=== PATIENT | male | born 1980 | race American Indian/Alaskan Native ===

== ENCOUNTER 2018-04-01 18:34 | Emergency (ER) | payer OTHER ==
[2018-04-01 19:21] VITALS: TEMP 98.2; BMI 30.1
[2018-04-01] MEDS ORDERED: Tobramycin 0.3% OPHT SOLN OD STA (19:30)
--- NOTE | 2018-04-01 19:34 | ED PDOC ---
Arrival/HPI - General Chief Complaint: Eye Problem Time Seen by Provider: 04/01/18 18:47 Historian: Patient - History of Present Illness Narrative History of Present Illness (Text): 04/01/18 19:31 37yo male with no PMhx who present with 2weeks history of left eye pain, redness , crusty purulent discharge. 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 He denies visual acuity changes, any other complaint. Past Medical History - Provider Review Nursing Documentation Reviewed: Yes - Infectious Disease Hx of Infectious Diseases: None - Cardiac Hx Cardiac Disorders: No - Pulmonary Hx Respiratory Disorders: Yes Hx Asthma: Yes - Neurological Hx Neurological Disorder: No - HEENT Hx HEENT Disorder: No - Renal Hx Renal Disorder: No - Endocrine/Metabolic Hx Endocrine Disorders: No - Hematological/Oncological Hx Blood Disorders: No - Integumentary Hx Dermatological Disorder: No - Musculoskeletal/Rheumatological Hx Musculoskeletal Disorders: No - Gastrointestinal Hx Gastrointestinal Disorders: No - Genitourinary/Gynecological Hx Genitourinary Disorders: No - Psychiatric Hx Psychophysiologic Disorder: Yes Hx Anxiety: Yes Hx Substance Use: Yes - Past Surgical History Past Surgical History: No Previous - Anesthesia Hx Anesthesia: Yes Hx Anesthesia Reactions: No Hx Malignant Hyperthermia: No - Suicidal Assessment Feels Threatened In Home Enviroment: No Family/Social History - Physician Review Nursing Documentation Reviewed: Yes Family/Social History: Unknown Family HX Smoking Status: Never Smoked Hx Alcohol Use: No Hx Substance Use: Yes Substance used: marijuana Allergies/Home Meds Allergies/Adverse Reactions: Allergies PCN Allergy (Uncoded 09/12/16 18:15) ANAPHYLAXIS Home Medications: Home Meds Medication Instructions Recorded Confirmed No Known Home Med 04/01/18 04/01/18 Review of Systems - Physician Review All systems were reviewed & negative as marked: Yes - Review of Systems Constitutional: Normal Eyes: Eye Pain (LEft eye), Other (Purulent discharge/redness) ENT: Normal Respiratory: Normal Cardiovascular: Normal Gastrointestinal: Normal Genitourinary Male: Normal Musculoskeletal: Normal Skin: Normal Neurological: Normal Endocrine: Normal Hemo/Lymphatic: Normal Psychiatric: Normal Physical Exam Vital Signs Reviewed: Yes Vital Signs Temp Pulse Resp Pulse Ox 04/01/18 19:17 98.2 F 99 H 17 98 Temperature: Afebrile Blood Pressure: Normal Pulse: Regular Respiratory Rate: Normal Appearance: Positive for: Well-Appearing, Non-Toxic, Comfortable Pain Distress: None Mental Status: Positive for: Alert and Oriented X 3 - Systems Exam Head: Present: Atraumatic, Normocephalic Pupils: Present: PERRL Extroacular Muscles: Present: EOMI Conjunctiva: Present: Injected (LEft eye), Icteric ([place] left conjunctiva) Mouth: Present: Moist Mucous Membranes Neck: Present: Normal Range of Motion Respiratory/Chest: Present: Clear to Auscultation, Good Air Exchange. No: Respiratory Distress, Accessory Muscle Use Cardiovascular: Present: Regular Rate and Rhythm, Normal S1, S2. No: Murmurs Abdomen: No: Tenderness, Distention, Peritoneal Signs Back: Present: Normal Inspection Upper Extremity: Present: Normal Inspection. No: Cyanosis, Edema Lower Extremity: Present: Normal Inspection. No: Edema Neurological: Present: GCS=15, CN II-XII Intact, Speech Normal Skin: Present: Warm, Dry, Normal Color. No: Rashes Psychiatric: Present: Alert, Oriented x 3, Normal Insight, Normal Concentration Medical Decision Making - Medication Orders Current Medication Orders: Discontinued Medications Tobramycin Sulfate (Tobrex 0.3% Ophth Soln) 2 drop OD STAT STA Stop: 04/01/18 19:31 Disposition/Present on Arrival - Present on Arrival Any Indicators Present on Arrival: No History of DVT/PE: No History of Uncontrolled Diabetes: No Urinary Catheter: No History of Decub. 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
[2018-04-01 21:27] VITALS: BP 134/98; PULSE 80; RESP 18; O2SAT 100
== END 2018-04-01 20:33 | disposition home or self-care (01) ==
LOC: ED 18:34
DX: H10.9 Unspecified conjunctivitis (principal)

== ENCOUNTER 2018-08-18 20:11 | Emergency (ER) | payer SELFPAY ==
[2018-08-18 20:11] VITALS: BMI 30.1
[2018-08-18 22:23] LABS: URINE BILIRUBIN NEGATIVE (NEGATIVE); URINE BLOOD NEGATIVE (NEGATIVE); URINE GLUCOSE (UA) NEGATIVE (NEGATIVE); URINE LEUKOCYTE ESTERASE NEGATIVE Leu/uL (NEGATIVE); URINE PROTEIN NEGATIVE mg/dL (<30 mg/dL); URINE UROBILINOGEN 0.2 E.U./dL (<1 E.U./dL)
[2018-08-18 22:24] LABS: BASO # 0.02 K/mm3 (0.0-2.0); BASO % 0.2 % (0.0-3.0); EOS # 0.2 (0.0-0.7); EOS % 2.6 % (1.5-5.0); GRAN # 6.5 (1.4-6.5); GRAN % 71.9 % (50.0-68.0); HEMOGLOBIN 11.5 g/dL (14.0-18.0); LYMPH # 1.8 (1.2-3.4); LYMPH % 19.5 % (22.0-35.0); MEAN CELL VOLUME 86.6 fl (80.0-105.0); MEAN CORPUSCULAR HEMOGLOBIN 27.4 pg (25.0-35.0); MEAN CORPUSCULAR HGB CONC 31.7 g/dl (31.0-37.0); MEAN PLATELET VOLUME 11.3 fl (7.0-11.0); MONO # 0.5 (0.1-0.6); MONO % 5.8 % (1.0-6.0); RBC 4.19 10^6/uL (3.5-6.1); RED CELL DISTRIBUTION WIDTH 13.3 % (11.5-14.5); WHITE BLOOD COUNT 9.1 10^3/ul (4.5-11.0)
[2018-08-18 22:26] LABS: URINE APPEARANCE CLEAR (CLEAR); URINE COLOR YELLOW (YELLOW)
[2018-08-18 22:32] LABS: ALBUMIN 4.1 g/dL (3.0-4.8); ALT/SGPT 34 U/L (7-56); AST/SGOT 34 U/L (17-59); BLOOD UREA NITROGEN 14 mg/dL (7-21); CALCIUM 9.1 mg/dL (8.4-10.5); GFR NON-AFRICAN AMERICAN > 60; URIC ACID 4.9 mg/dL (3.5-8.5)
[2018-08-18 23:33] VITALS: PULSE 90; TEMP 98.4
--- NOTE | 2018-08-19 00:33 | ED PDOC ---
Arrival/HPI <Lee Atkinsont - Last Filed: 08/19/18 03:32> - General Historian: Patient - History of Present Illness Narrative History of Present Illness (Text): 08/19/18 00:28 38 y/o male with PMH of gout who presents to the ED c/o right knee pain and right 1st MTP joint pain x 3 weeks. Pt states right knee began to swell on Saturday. Pt ambulating with a cane due to right knee pain. Has been taking 800mg ibuprofen daily without relief (last dose 600mg this AM). Pt is not on any chronic medication for gout, his typical flares are in his 1st MTP joint. Admits to a "rich diet" over the last few weeks to include seafood and wine. Pt sexually active with monogamous partner. Denies trauma, right knee erythema, fever, chills, headache, N/V, abdominal pain, SOB, chest pain, palpitations, rash, urinary symptoms, penile discharge. <Alanna Purvis - Last Filed: 08/19/18 04:24> - General Chief Complaint: Lower Extremity Problem/Injury Time Seen by Provider: 08/18/18 21:32 Past Medical History - Provider Review Nursing Documentation Reviewed: Yes - Infectious Disease Hx of Infectious Diseases: None - Cardiac Hx Cardiac Disorders: No - Pulmonary Hx Respiratory Disorders: Yes Hx Asthma: Yes - Neurological Hx Neurological Disorder: No - HEENT Hx HEENT Disorder: No - Renal Hx Renal Disorder: No - Endocrine/Metabolic Hx Endocrine Disorders: No - Hematological/Oncological Hx Blood Disorders: No - Integumentary Hx Dermatological Disorder: No - Musculoskeletal/Rheumatological Hx Musculoskeletal Disorders: No - Gastrointestinal Hx Gastrointestinal Disorders: No - Genitourinary/Gynecological Hx Genitourinary Disorders: No - Psychiatric Hx Psychophysiologic Disorder: Yes Hx Anxiety: Yes Hx Substance Use: Yes - Past Surgical History Past Surgical History: No Previous - Anesthesia Hx Anesthesia: Yes Hx Anesthesia Reactions: No Hx Malignant Hyperthermia: No - Suicidal Assessment Feels Threatened In Home Enviroment: No <Alanna Purvis - Last Filed: 08/19/18 04:24> Family/Social History - Physician Review Nursing Documentation Reviewed: Yes Family/Social History: No Known Family HX Smoking Status: Never Smoked Hx Alcohol Use: No Hx Substance Use: Yes Substance used: marijuana <Alanna Purvis - Last Filed: 08/19/18 04:24> Allergies/Home Meds <Bakari Atkins - Last Filed: 08/19/18 03:32> <Alanna Purvis - Last Filed: 08/19/18 04:24> Allergies/Adverse Reactions: Allergies No Known Allergies Allergy (Verified 08/18/18 20:41) Home Medications: Home Meds Medication Instructions Recorded Confirmed Budesonide/Formoterol Fumarate 2 pump INH BID 08/18/18 08/18/18 [Symbicort 160-4.5 Mcg Inhaler] Review of Systems - Physician Review All systems were reviewed & negative as marked: Yes - Review of Systems Constitutional: Normal. absent: Fevers Eyes: Normal. absent: Vision Changes ENT: Normal Respiratory: Normal. absent: SOB, Cough Cardiovascular: Normal. absent: Chest Pain, Palpitations Gastrointestinal: Normal. absent: Abdominal Pain, Stool Changes, Nausea, Vomiting Genitourinary Male: Normal. absent: Dysuria, Frequency, Hematuria Musculoskeletal: Arthralgias (right knee, right 1st MTP joint), Joint Swelling (right knee). absent: Back Pain, Neck Pain Skin: Normal. absent: Rash Neurological: Normal. absent: Headache, Dizziness Endocrine: Normal. absent: Diaphoresis Hemo/Lymphatic: Normal. absent: Adenopathy <Alanna Purvis - Last Filed: 08/19/18 04:24> Physical Exam Vital Signs Temp Pulse Resp BP Pulse Ox 08/18/18 23:32 98.4 F 90 18 129/83 97 08/18/18 20:42 98.8 F 104 H 19 119/80 96 <Bakari Atkins - Last Filed: 08/19/18 03:32> Vital Signs Reviewed: Yes Vital Signs Temp Pulse Resp BP Pulse Ox 08/18/18 23:32 98.4 F 90 18 129/83 97 08/18/18 20:42 98.8 F 104 H 19 119/80 96 Temperature: Afebrile Blood Pressure: Normal Pulse: Regular Respiratory Rate: Normal Appearance: Positive for: Well-Appearing, Non-Toxic, Comfortable Pain Distress: None Mental Status: Positive for: Alert and Oriented X 3 - Systems Exam Head: Present: Atraumatic, Normocephalic Pupils: Present: PERRL Extroacular Muscles: Present: EOMI Conjunctiva: Present: Normal Mouth: Present: Moist Mucous Membranes Neck: Present: Normal Range of Motion. No: Meningeal Signs, MIDLINE TENDERNESS, Paraspinal Tenderness Respiratory/Chest: Present: Clear to Auscultation, Good Air Exchange. No: Respiratory Distress, Accessory Muscle Use Cardiovascular: Present: Regular Rate and Rhythm, Normal S1, S2. No: Murmurs Abdomen: No: Tenderness, Distention, Peritoneal Signs Back: Present: Normal Inspection. No: Midline Tenderness, Paraspinal Tenderness Upper Extremity: Present: Normal Inspection. No: Cyanosis, Edema Lower Extremity: Present: NORMAL PULSES, Tenderness (right knee, right 1st MTP joint), Swelling (right knee), Neurovascularly Intact, Capillary Refill < 2 s. No: CALF TENDERNESS, Cyanosis, Normal ROM (decreased in right knee secondary to pain), Erythema, Deformity Neurological: Present: GCS=15, CN II-XII Intact, Speech Normal, Motor Func Grossly Intact, Normal Sensory Function, Normal Cerebellar Funct. No: Gait Normal (ambulating with cane secondary to pain) <Alanna Purvis - Last Filed: 08/19/18 04:24> Medical Decision Making - Lab Interpretations Lab Results: 08/18/18 22:19 08/18/18 22:19 Lab Results 08/18/18 22:19: Urine Color Yellow, Urine Appearance Clear, Urine pH 6.0, Ur Specific [place] 1.025, Urine Protein Negative, Urine Glucose (UA) Negative, Urine Ketones Trace H, Urine Blood Negative, Urine Nitrate Negative, Urine Bilirubin Negative, Urine Urobilinogen 0.2, Ur Leukocyte Esterase Negative 08/18/18 22:19: Sodium 141, Potassium 4.4, Chloride 106, Carbon Dioxide 27, Anion Gap 13, BUN 14, Creatinine 1.0, Est GFR ( Amer) > 60, Est GFR (Non- Af Amer) > 60, Random Glucose 96, Uric Acid 4.9, Calcium 9.1, Total Bilirubin 0.6, AST 34, ALT 34, Alkaline Phosphatase 64, Total Protein 7.9, Albumin 4.1, Globulin 3.9, Albumin/Globulin Ratio 1.0 L 08/18/18 22:19: WBC 9.1 D, RBC 4.19, Hgb 11.5 L, Hct 36.3 L, MCV 86.6, MCH 27.4, MCHC 31.7, RDW 13.3, Plt Count 361, MPV 11.3 H, Gran % 71.9 H, Lymph % (Auto) 19.5 L, [place] % (Auto) 5.8, Eos % (Auto) 2.6, Baso % (Auto) 0.2, Gran # 6.50, Lymph # (Auto) 1.8, [place] # (Auto) 0.5, Eos # (Auto) 0.2, Baso # (Auto) 0.02, ESR 85 H - RAD Interpretation Radiology Orders: 08/19/18 01:21 KNEE RIGHT 2 VIEWS (AP & LAT) [RAD] Stat - Medication Orders Current Medication Orders: Discontinued Medications Dexamethasone (Decadron Inj) 10 mg IVP STAT STA Stop: 08/18/18 21:37 Last Admin: 08/18/18 22:02 Dose: 10 mg IVP Administration Document 08/18/18 22:02 [place] (Rec: 08/18/18 22:02 [id number]) Charges for Administration # of IVP Administrations 1 Ketorolac Tromethamine (Toradol) 30 mg IVP STAT STA Stop: 08/18/18 21:38 Last Admin: 08/18/18 22:03 Dose: 30 mg MAR Pain Assessment Document 08/18/18 22:03 [place] (Rec: 08/18/18 22:03 [id number]) Pain Reassessment Is this a pain reassessment? No Sleep Is patient sleeping during reassessment? No Presence of Pain Presence of Pain Yes IVP Administration Document 08/18/18 22:03 [place] (Rec: 08/18/18 22:03 [id number]) Charges for Administration # of IVP Administrations 1 <Bakari Atkins - Last Filed: 08/19/18 03:32> ED Course and Treatment: 08/19/18 00:36 Initial Plan: --CBC, CMP --Uric acid, ESR --Toradol --Decadron --Right knee xray CBC, CMP: wnl ESR: 85, elevated Uric acid: wnl On re-eval pt reports decreased pain After discussion with Dr. Atkins, he will attempt to perform arthrocentesis of right knee to assess for septic joint Unable to aspirate fluid, see procedure note Impression: Gout Flare Plan: --Prednisone --Indomethacin --Followup with clinic --Return to ED if symptoms worsen - Lab Interpretations Lab Results: 08/18/18 22:19 08/18/18 22:19 Lab Results 08/18/18 22:19: Urine Color Yellow, Urine Appearance Clear, Urine pH 6.0, Ur Specific [place] 1.025, Urine Protein Negative, Urine Glucose (UA) Negative, Urine Ketones Trace H, Urine Blood Negative, Urine Nitrate Negative, Urine Bilirubin Negative, Urine Urobilinogen 0.2, Ur Leukocyte Esterase Negative 08/18/18:19: Sodium 141, Potassium 4.4, Chloride 106, Carbon Dioxide 27, Anion Gap 13, BUN 14, Creatinine 1.0, Est GFR ( Amer) > 60, Est GFR (Non- Af Amer) > 60, Random Glucose 96, Uric Acid 4.9, Calcium 9.1, Total Bilirubin 0.6, AST 34, ALT 34, Alkaline Phosphatase 64, Total Protein 7.9, Albumin 4.1, Globulin 3.9, Albumin/Globulin Ratio 1.0 L 08/18/18:19: WBC 9.1 D, RBC 4.19, Hgb 11.5 L, Hct 36.3 L, MCV 86.6, MCH 27.4, MCHC 31.7, RDW 13.3, Plt Count 361, MPV 11.3 H, Gran % 71.9 H, Lymph % (Auto) 19.5 L, [place] % (Auto) 5.8, Eos % (Auto) 2.6, Baso % (Auto) 0.2, Gran # 6.50, Lymph # (Auto) 1.8, [place] # (Auto) 0.5, Eos # (Auto) 0.2, Baso # (Auto) 0.02, ESR Pending I have reviewed the lab results: Yes - Medication Orders Current Medication Orders: Discontinued Medications Dexamethasone (Decadron Inj) 10 mg IVP STAT STA Stop: 08/18/18 21:37 Last Admin: 08/18/18 22:02 Dose: 10 mg IVP Administration Document 08/18/18 22:02 [place] (Rec: 08/18/18 22:02 [place] [id number]) Charges for Administration # of IVP Administrations 1 Ketorolac Tromethamine (Toradol) 30 mg IVP STAT STA Stop: 08/18/18 21:38 Last Admin: 08/18/18 22:03 Dose: 30 mg MAR Pain Assessment Document 08/18/18 22:03 [place] (Rec: 08/18/18 22:03 [id number]) Pain Reassessment Is this a pain reassessment? No Sleep Is patient sleeping during reassessment? No Presence of Pain Presence of Pain Yes IVP Administration Document 08/18/18 22:03 [place] (Rec: 08/18/18 22:03 [id number]) Charges for Administration # of IVP Administrations 1 <Alanna Purvis - Last Filed: 08/19/18 04:24> Procedures - Time-Out Type of Procedure: knee arthorcentesis Site of Procedure: right knee Correct Patient (with visual ID + MR# on ID Band): Yes Correct Procedure: Yes Correct Site Marked: Yes Medication Reconciliation / Bloodwork / Allergies Checked: Yes Physician Name: jose martin - Additional Procedures Progress: right knee was prepped with betadine and sterile drape. a superficial wheel was used to infiltrate the skin with 1cc of 1%lido without epi,a 20g needle was used to attempt introduction into the right knee joint via superior lateral approach and unable to aspirate jpoint space fluid, minimal bleeding noted and needle w as withdrawn, patient did experience mild pain bu tolerated this approach. the patient was then prepped for a inferior medial approach in the same fashion as detailed above. a 20g needle was introduced into the knee joint but unable to aspirate any synovial fluid. no bleeding noted, patient tolerated procedure well, procedure aborted. essentially "dry tap". <Bakari Atkins - Last Filed: 08/19/18 03:32> Disposition/Present on Arrival - Present on Arrival Any Indicators Present on Arrival: No - Disposition Have Diagnosis and Disposition been Completed?: Yes Disposition Time: 03:33 Patient Plan: Discharge <Bakari Atkins - Last Filed: 08/19/18 03:32> - Present on Arrival History of DVT/PE: No History of Uncontrolled Diabetes: No Urinary Catheter: No History of Decub. Ulcer: No History Surgical Site Infection Following: None <Alanna Purvis - Last Filed: 08/19/18 04:24> - Disposition Diagnosis: Gout attack Disposition: HOME/ ROUTINE Condition: IMPROVED Discharge Instructions (ExitCare): Gout Additional Instructions: Take indomethacin three times a day and decrease dose as pain decreases x 1 week Take Prednisone 2 pills daily for 3 days, and then 1 pill daily for 2 days Followup with clinic within 2 days Return to ED if pain persists or new symptoms develop such as fever, vomiting Prescriptions: Indomethacin 50 mg PO TID PRN #21 capsule PRN Reason: Pain, Moderate (4-7) Prednisone [Deltasone] 20 mg PO DAILY 5 Days #8 tablet Referrals: Giovana Reyes MD [Medical Doctor] - Follow up with primary [employer] [Outside] - Follow up with primary Tarik Pena MD [Staff Provider] - Follow up with primary Forms: [facility] (Maldivian), WORK NOTE
[2018-08-19] MEDS ORDERED: Lidocaine 1% 5ml Abboject ONE (03:05)
[2018-08-19 03:37] VITALS: BP 130/82; RESP 17; O2SAT 99
--- NOTE | 2018-08-19 10:27 | RAD ---
Date of service: 08/19/2018 PROCEDURE: Right Knee Radiographs. HISTORY: Pain COMPARISON: None. FINDINGS: BONES: Bone alignment and mineralization are normal. There is no acute displaced fracture or bone destruction. JOINTS: Normal. No osteoarthritis. JOINT EFFUSION: There is a large suprapatellar joint effusion. OTHER FINDINGS: None. IMPRESSION: No acute fracture or dislocation. Large suprapatellar joint effusion.
== END 2018-08-19 03:35 | disposition home or self-care (01) ==
LOC: ED 20:11
DX: M10.9 Gout, unspecified (principal)
CPT/HCPCS: 73560; 80053; 81003; 84550; 85025; 85651; 87086; 96374; 96375; 99284; J1100; J1885